=== PATIENT | male | born 1970 ===

== ENCOUNTER 2018-08-21 08:08 | Emergency (ER) | payer SELFPAY ==
[2018-08-21] MEDS ORDERED: DiphenhydrAMINE 50 mg/ml Inj IVP STA (08:22)
[2018-08-21] MEDS ORDERED: DiphenhydrAMINE 50 mg/ml Inj ONE (08:25)
--- NOTE | 2018-08-21 08:37 | ED PDOC ---
Arrival/HPI - General Chief Complaint: Allergic Reaction Time Seen by Provider: 08/21/18 08:17 Historian: Patient - History of Present Illness Narrative History of Present Illness (Text): 08/21/18 08:20 48 year old male, with no significant past medical history, who presents to the Emergency department complaining of an allergic reaction after taking Advil this morning. Patient notes he took advil and after arriving at work, he became itchy everywhere and started swelling up. Patient states he has taken Advil in the past, with no allergic reaction. Patient denies any known allergies, denies use of any medication, denies pain, or any other complaints. Time/Duration: Prior to Arrival (patient notes allergic reaction after taking Advil this morning) Symptom Onset: Sudden Symptom Course: Unchanged Activities at Onset: Light Past Medical History - Provider Review Nursing Documentation Reviewed: Yes - Psychiatric Hx Substance Use: Yes - Surgical History Other/Comment: L testicle removal Family/Social History - Physician Review Nursing Documentation Reviewed: Yes Family/Social History: No Known Family HX Smoking Status: Heavy Smoker > 10 Cigarettes Daily Hx Alcohol Use: Yes Frequency of alcohol use: Socially Hx Substance Use: Yes Substance used: marijuana Allergies/Home Meds Allergies/Adverse Reactions: Allergies ibuprofen [From Advil] Adverse Reaction (Verified 08/21/18 08:13) URTICARIA Review of Systems - Physician Review All systems were reviewed & negative as marked: Yes - Review of Systems Skin: Pruritis (patient notes feeling itchy everywhere after taking advil), Other (patient notes swelling after taking Advil ). absent: Normal Physical Exam Vital Signs Reviewed: Yes Vital Signs Temp Pulse Resp BP Pulse Ox 08/21/18 08:17 97.5 F L 78 16 120/85 97 Temperature: Afebrile (at 97.5) Blood Pressure: Normal Pulse: Regular Respiratory Rate: Normal Appearance: Positive for: Well-Appearing, Non-Toxic Pain Distress: None Mental Status: Positive for: Alert and Oriented X 3 - Systems Exam Head: Present: Atraumatic, Normocephalic Pupils: Present: PERRL Extroacular Muscles: Present: EOMI Conjunctiva: Present: Normal Mouth: Present: Moist Mucous Membranes Neck: Present: Normal Range of Motion Respiratory/Chest: Present: Clear to Auscultation, Good Air Exchange. No: Respiratory Distress, Accessory Muscle Use Cardiovascular: Present: Regular Rate and Rhythm, Normal S1, S2. No: Murmurs Abdomen: No: Tenderness, Distention, Peritoneal Signs Back: Present: Normal Inspection Upper Extremity: Present: Normal Inspection. No: Cyanosis, Edema Lower Extremity: Present: Normal Inspection. No: Edema Neurological: Present: GCS=15, CN II-XII Intact, Speech Normal Skin: Present: Warm, Dry, Rashes (diffuse maculopapular rash) Psychiatric: Present: Alert, Oriented x 3, Normal Insight, Normal Concentration Medical Decision Making ED Course and Treatment: 08/21/18 08:20 Impression: 48 year old presents to the Emergency department for an allergic reaction after taking Advil this morning, noting swelling and itchiness. Differential Diagnosis included but are not limited to: Plan: -- Benadryl 50mg IVP -- Pepcid 20mg IVP -- SOLU-Medrol 125mg IVP -- Reassess and disposition Progress Notes: 08/21/18 09:25 Patient reassessed, symptoms have improved. Swelling is resolving. Rash is resolving. 08/21/18 10:12 Symptoms resolved. patient is sleeping comfortably in no acute distress. lungs are clear. - Medication Orders Current Medication Orders: Discontinued Medications Diphenhydramine HCl (Benadryl) 50 mg IVP STAT STA Stop: 08/21/18 08:23 Last Admin: 08/21/18 08:29 Dose: 50 mg IVP Administration Document 08/21/18 08:29 [email or web address] (Rec: 08/21/18 08:30 [email or web address] [id number]) Charges for Administration # of IVP Administrations 1 Famotidine (Pepcid) 20 mg IVP STAT STA Stop: 08/21/18 08:23 Last Admin: 08/21/18 08:30 Dose: 20 mg IVP Administration Document 08/21/18 08:30 [email or web address] (Rec: 08/21/18 08:30 [email or web address] [id number]) Charges for Administration # of IVP Administrations 1 Methylprednisolone (Solu-Medrol) 125 mg IVP STAT STA Stop: 08/21/18 08:23 Last Admin: 08/21/18 08:29 Dose: 125 mg IVP Administration Document 08/21/18 08:29 [email or web address] (Rec: 08/21/18 08:29 [email or web address] [id number]) Charges for Administration # of IVP Administrations 1 - Scribe Statement The provider has reviewed the documentation as recorded by the Scribe Jazzy Guerra All medical record entries made by the Mirellaibe were at my direction and personally dictated by me. I have reviewed the chart and agree that the record accurately reflects my personal performance of the history, physical exam, medical decision making, and the department course for this patient. I have also personally directed, reviewed, and agree with the discharge instructions and disposition. Disposition/Present on Arrival - Present on Arrival Any Indicators Present on Arrival: No History of DVT/PE: No History of Uncontrolled Diabetes: No Urinary Catheter: No History of Decub. Ulcer: No History Surgical Site Infection Following: None - Disposition Have Diagnosis and Disposition been Completed?: Yes Diagnosis: Allergic reaction Disposition: HOME/ ROUTINE Disposition Time: 10:00 Condition: STABLE Discharge Instructions (ExitCare): Hives (DC), Drug Allergy Additional Instructions: return to er with worsening symmptoms or concerns. please see your doctor/ clinic. Prescriptions: DiphenhydrAMINE [Benadryl] 25 mg PO Q4 PRN #20 cap PRN Reason: Itching / Pruritus Epinephrine [Epipen] 0.3 mg IJ ONCE PRN #1 auto.injct PRN Reason: Anaphylaxis Famotidine [Pepcid] 20 mg PO DAILY #7 tab RX: Prednisone 50 mg PO DAILY #5 tablet Referrals: [facility] [Outside] - Follow up with primary [facility] [Outside] - Follow up with primary Forms: [email or web address] (Finnish)
[2018-08-21 10:22] VITALS: BP 122/80; PULSE 79; RESP 18; TEMP 97.9; O2SAT 98
== END 2018-08-21 10:22 | disposition home or self-care (01) ==
LOC: ED 08:08
DX: T78.40XA Allergy, unspecified, initial encounter (principal); X58.XXXA Exposure to other specified factors, initial encounter
CPT/HCPCS: 96374; 96375; 99282; J1200; J2930